=== PATIENT | male | born 2000 | race Caucasian/White ===

== ENCOUNTER 2022-05-04 09:33 | Emergency (ER) | payer OTHER, SELFPAY ==
[2022-05-04 09:44] VITALS: BP 134/70; PULSE 56; RESP 18; TEMP 36.7; O2SAT 100
--- NOTE | 2022-05-04 09:56 | ED.GENADULT ---
HPI - General Adult General Chief complaint: Ear Stated complaint: Nausea, tired Source: patient Mode of arrival: ambulatory Limitations: no limitations History of Present Illness HPI narrative: Patient presents for evaluation of right ear pain since yesterday. He states pain is a dull ache, rated 2 out of 10 in severity. He has some muffled hearing and mild tinnitus. No drainage from the ear. No fever, chills, nausea, vomiting, cough, sinus congestion or sore throat. He has not been swimming as of late. He states he had similar symptoms in the past with otitis externa. He is taking ibuprofen for pain. No additional complaints or concerns Related Data Allergies Allergy/AdvReac Type Severity Reaction Status Date / Time No Known Allergies Allergy Unverified 05/04/22 09:44 Review of Systems Review of Systems: CONSTITUTIONAL: Denies fever, chills, or sweats. EYES: Denies visual changes, redness, or discharge. ENT:Reports right sided ear pain with mild tinnitus and muffled hearing. Denies drainage from ear, sore throat, sinus congestion. CARDIOVASCULAR: Denies chest pain, palpitations, or edema. RESPIRATORY: Denies cough or dyspnea. GASTROINTESTINAL: Denies abdominal pain, nausea, vomiting, or diarrhea. GENITOURINARY: Denies dysuria or hematuria. SKIN: Denies rash or itching. MUSCULOSKELETAL: Denies back pain, joint pain, or myalgia. NEUROLOGIC: Denies headache, numbness, dizziness, or weakness. PSYCHIATRIC: Denies anxiety or depression. [facility] Past Medical History Medical History No pertinent past medical history Surgical History Surgical History No pertinent past surgical history Family History Family History Mother Family history non-contributory Social History Social History Smoking status: Current every day smoker Tobacco type: e-cigarettes/vaping Alcohol intake: current Alcohol use details: social Additional living arrangements comments: Lives with girlfriend Gender identity (if verbalized by the patient): Male Sexual Orientation (if Verbalized by the Patient): Straight or Heterosexual Spiritual care concerns: No Exam Narrative: GENERAL: Well-appearing, well-nourished, and in no acute distress. HEAD: Normocephalic, atraumatic. EYES: PERRLA and EOMI. ENT: Nares clear, no rhinorrhea or epistaxis. Mucous membranes moist. Oropharynx without tonsillar hypertrophy exudate or other lesions. Bilateral ear canals are edematous. Bilateral TMs pearly guzman nonbulging NECK: Supple. No adenopathy or masses. No carotid bruits or JVD CHEST: Clear to auscultation. No respiratory distress. No wheezes rales or rhonchi HEART: Regular rate and rhythm. No murmur heard. Normal peripheral pulses. ABDOMEN: Soft, nontender, nondistended, normal active bowel sounds. EXTREMITIES: Normal range of motion. No edema. SKIN: Warm, dry, no rash. NEURO: No focal deficits. Alert and oriented x3. PSYCH: Normal mood and affect. Course Course Emergency Course: This is a 21-year-old male who presented for evaluation of pain in the right ear. On physical exam he has edematous ear canals consistent with otitis externa. Will dc with ofloxacin. Follow up outpatient for further evaluation and treatment and return for worsening symptoms. Pt in agreement with plan of care. Level of Care: Express Care Visit Vital Signs Vital signs: Vital Signs Temperature 36.7 C 05/04/22 09:44 Pulse Rate 56 L 05/04/22 09:44 Respiratory Rate 18 05/04/22 09:44 Blood Pressure 134/70 05/04/22 09:44 Pulse Oximetry 100 05/04/22 09:44 Oxygen Delivery Room Air 05/04/22 09:44 Temperature 36.7 C 05/04/22 09:44 Pulse Rate 56 L 05/04/22 09:44 Respiratory Rate 18 05/04/22 09:44 Bl
== END 2022-05-04 09:53 | disposition home or self-care (01) ==
PROVIDERS: Emergency Provider Nurse Practitioner
DX: H60.93 Unspecified otitis externa, bilateral (principal); F17.290 Nicotine dependence, other tobacco product, uncomplicated
CPT/HCPCS: 99203; G0463

== ENCOUNTER 2023-05-12 01:11 | Day surgery (SDC) | payer OTHER, SELFPAY ==
[2023-05-04 11:47] VITALS: BMI 27.3
--- NOTE | 2023-05-04 11:50 | PC.NURSE ---
Report to the Outpatient Waiting Room, entrance under the green pavilion located off [facility], at time 0830 on date 05/12/23. Planned Procedure Time: 1230. Time changes happen often and if your time is changed the preop area will call you the afternoon before. - You and your visitor will be asked to self-screen and do not enter if you have any COVID symptoms. - A mask is optional within the hospital at this time. Patients may have clear liquids (water, carbonated beverages, clear teas, apple juice) until 3 hours prior to surgery with a maximum of 20 ounces. - No food from midnight until time of surgery Take the following medications with a SIP of water the morning of surgery: N/A DO NOT STOP ANY OF YOUR OTHER PRESCRIPTION MEDICATIONS PRIOR TO SURGERY ?EXCEPT THE FOLLOWING Medications to discontinue per physician: N/A Date to take last dose: N/A Please no make-up, nail hungarian, hairspray, perfume, deodorant, or body powder the day of surgery. No jewelry (including any body piercings) or valuables the day of surgery, leave them at home. Please take a shower or bath the night before, or the morning of, surgery with an antibacterial soap. Wear comfortable, loose fitting clothing. - Jewelry must be removed prior to entering the operating room. Rings and piercings that are not removed may be cut off. - The hospital will not accept responsibility for valuables. - Please leave all valuables, including medications, at home the day of surgery. If you are going home after surgery, a licensed marine engine driver must drive you home. - NO public transportation without another adult if you receive anesthesia. - We recommend that an adult stay with you for 24 hours following discharge. - We also recommend that you do not drive, make important decision, drink alcoholic beverages, or take any drugs that were not prescribed by your health care provider for at least 24 hours after your discharge time. Follow any additional instructions given to you from your surgeon. If you or anyone in your household have experienced Covid symptoms in the past week, please notify your surgeon or the nurse liaison at the phone number below for possible testing. Telephone instructions given to PT - ANTONY SALAZAR and asked if any additional questions and then verbalized understanding. Patient advised to call surgeon office or pre surgery nurse liaison [phone] if any additional questions.
[2023-05-12] VITALS (9 sets, daily range): BP systolic 124–163; BP diastolic 78–105; PULSE 56–93; RESP 12–20; TEMP 36.2–36.4; O2SAT 98–100
[2023-05-12 09:36] LABS: Urine Cotinine NEGATIVE
[2023-05-12] MEDS: LACTATED RINGERS 1,000 ML 30 ML IV CONT ×2 (09:44→12:40)
--- NOTE | 2023-05-12 10:12 | P.PNAN_ITS ---
Anes - Initial Pre Proc Eval Procedure: Operation Date: 05/12/23 10:30 Proposed Procedures p Excision of Gynecomastia with Liposuction - Trenton Wilson MD Date/Time: 05/12/23 10:12 Surgeon: Trenton Wilson MD Pre Op Diagnosis: gynecomastia Patient Data Age: 22 Gender: M Height: 1.75 m Weight: 84 kg Last Vital Signs Temp 97.5 F L 05/12/23 09:59 Pulse 56 L 05/12/23 09:59 Resp 16 05/12/23 09:59 BP 131/79 05/12/23 09:59 Pulse Ox 99 05/12/23 09:59 O2 Del Method Room Air 05/12/23 09:59 Allergies Allergy/AdvReac Type Severity Reaction Status Date / Time No Known Allergies Allergy Unverified 05/12/23 09:04 Home Medications Medication Instructions Recorded Confirmed Type acetaminophen 500 mg tablet 1,000 mg PO QID PRN Pain 05/04/23 05/04/23 History Laboratory Tests 05/12/23 09:08 Cotinine Negative Patient hx anesthesia problems: none Family hx anesthesia problems: none Results Review: All pre-operative results and documents have been reviewed as part of the pre- operative evaluation. [facility] Past Medical History Medical History (Updated 05/05/22 @ 00:00 by Benito Duckworth) No pertinent past medical history Surgical History Surgical History No pertinent past surgical history Family History Family History Mother Family history non-contributory Social History Social History Smoking status: Former smoker Tobacco type: cigarettes Smoking end date: 04/02/23 Additional smoking assessment comments: FORMER SOME DAY SMOKER Alcohol intake: current Drinks per week: 2 Alcohol use details: social Substance use: former Substance use type: marijuana Living arrangements: with friend(s) Additional living arrangements comments: GIRLFRIEND Gender identity (if verbalized by the patient): Male Sexual Orientation (if Verbalized by the Patient): Straight or Heterosexual Spiritual care concerns: No Anes - Eval Final PreProcedure Day of Procedure 05/12/23 10:12 Patient weight: normal Heart: regular rate and rhythm Lungs: clear to auscultation Airway: Mallampati scale class II Neurological: alert and oriented Last oral intake: >/= 8 hours ASA classification: II Emergent: no Anesthetic plan: proceed Anesthesia type and monitoring: general LMA and standard monitoring Results Review: All pre-operative results and documents have been reviewed as part of the pre- operative evaluation. Informed Consent: The patient's anesthetic plan and its attendant risks and benefits were discussed with the patient/family/POA. Questions were solicited and answers provided to the satisfaction of the patient/family/POA.
--- NOTE | 2023-05-12 10:42 | P.OP_ITS ---
Procedure Note - Detailed Date of Procedure 05/12/23 Pre-op Diagnosis gynecomastia Post-op Diagnosis Same Procedure Performed Excision gynecomastia Surgeon Trenton Wilson MD Anesthesia General Findings Lipoaspirate 150 cc Description of Procedure He is here today for the above procedure. Previously and again today the risks, benefits, alternatives were discussed in extensive detail. I wanted him to be very realistic about the risks involved as well as expectations. We discussed aftercare and what to monitor for. Discussed realistic expectations of outcome. Made sure I answered all of questions to satisfaction today and consent was obtained. He was marked in the preoperative holding area with his verification. The patient was taken to the operating room placed supine on the operating table. Anesthesia was provided by anesthesiology. Prepped and draped in a standard sterile fashion. A surgical time-out was taken. Stab incisions were made and I tumesced with a tumescent solution. A 15 blade was used to make an inferior areolar incision and dissection continued until the gland was identified. This was excised. Irrigated copiously with saline solution and verified a strict hemostasis. This was tailor tacked into place. I then proceeded with suction lipectomy based on S.A.F.E. technique using a 4mm basket cannula. This was in multiple planes and passes and based on pre- operative planning, intraoperative observation, and rolling pinch test which was in full agreement. He was placed in a sitting position to verify final contour. Incision was closed with 2-0 Vicryl, 3-0 Monocryl, and running subcuticular 4-0 Monocryl. Port sites closed with 4-0 Nylon. Dressing was placed. Patient was awoke and taken to PACU without difficulty. All instrument and sponge counts were correct at the end of the case. Estimated Blood Loss 30 Drains No Packing No Pathology None sent Complications No immediate complications Condition Stable Disposition PACU
--- NOTE | 2023-05-12 10:42 | WPDHPUPDATE1 ---
History and Physical Update Update Date/Time: 05/12/23 10:42 History and Physical has been reviewed, including an updated exam of the patient. There are NO changes in the patient's condition. Risks, benefits, and alternatives have been discussed and questions answered. Patient agrees to proceed with procedure.
[2023-05-12] MEDS: ceFAZolin 2 GM/D5W 50 ML 2 GM/50 ML BAG IVPB (11:00)
[2023-05-12] MEDS: oxyCODONE HCL (*CRX) 5 MG TAB IR PO (13:37)
[2023-05-12] MEDS: fentaNYL CITRATE INJ (*CRX) 100 MCG/2 ML VIAL 25 MCG IV PUSH (14:13)
== END 2023-05-12 14:50 | disposition home or self-care (01) ==
PROVIDERS: Visit Provider Surgery Plastic and Reconstructive Surgery
PROC: (CPT 19300; principal; 2023-05-12 10:30)
DX: N62 Hypertrophy of breast (principal); Z87.891 Personal history of nicotine dependence; F12.90 Cannabis use, unspecified, uncomplicated
CPT/HCPCS: 19300; 15877; 80307; A9270; J0171; J0690; J1100; J1170; J2250; J2405; J2704; J3010; J7120